=== PATIENT | female | born 1985 | race Caucasian/White ===

== ENCOUNTER → 2018-01-07 08:32 | Outpatient (CLI) | payer MEDICAID | END | disposition home or self-care (01) | LOC: D.NM 12-24 10:15 | DX: G90.512 Complex regional pain syndrome I of left upper limb (principal) ==

== ENCOUNTER 2019-02-13 17:06 | Emergency (ER) | payer MEDICAID ==
[~2019-02-13] VITALS: Ht 167.6 cm; Wt 76.4 kg
[2019-02-13 17:09] VITALS: Ht 167.6 cm; Wt 76.4 kg
[2019-02-13] MEDS ORDERED: LATUDA80 MG PO (17:10)
[2019-02-13] MEDS ORDERED: HYDROCODON-ACE1 EA10 PO (17:11)
[2019-02-13] MEDS ORDERED: KLONOPIN1 MG PO (17:11)
[2019-02-13] MEDS ORDERED: [UNRECOGNIZED DRUG - OTHER] (17:12)
[2019-02-13] MEDS ORDERED: CHRONULAC30 ML PO (17:12)
[2019-02-13] MEDS ORDERED: ZOVIRAX200 MG PO (17:13)
[2019-02-13] MEDS ORDERED: ZANAFLEX4 MG PO (17:13)
[2019-02-13] MEDS ORDERED: NEURONTIN600 MG PO (17:13)
[2019-02-13 17:31] LABS: BASOPHILS 0.3 % (0-2); EOSINOPHILS 3.2 % (0-7); HEMATOCRIT 38.9 % (36.0-48.0); HEMOGLOBIN 13.6 g/dL (12-16); IMMATURE GRANULOCYTES 0.3 % (0-5); LYMPHOCYTES 20.5 % (15-50); MCH 32.3 pg (26.0-34.0); MCV 92.4 fL (80.0-100.0); MEAN PLATELET VOLUME 10.1 fL (7.4-10.4); MONOCYTES 10.4 % (2-11); NEUTROPHILS 65.3 % (40-80); PLATELET COUNT 273 10x3/uL (130-400); RBC 4.21 10x6/uL (4.00-5.40); RDW 12.9 % (11.5-14.5); WBC 10.3 10x3/uL (4.8-10.8)
[2019-02-13 17:47] LABS: ALBUMIN 3.7 g/dL (3.4-5.0); ALKALINE PHOSPHATASE 58 U/L (46-116); ALT (SGPT) 19 U/L (10-68); BILIRUBIN - TOTAL 0.45 mg/dL (0.2-1.3); CALC OSMOLALITY 278 mosm/kg (275-300); CALCIUM 8.9 mg/dL (8.5-10.1); CARBON DIOXIDE 23.3 mmol/L (21.0-32.0); CHLORIDE - SERUM 105 mmol/L (98-107); CREATININE - SERUM 0.8 mg/dL (0.6-1.3); GLUCOSE 106 mg/dL (74-106); POTASSIUM - SERUM 4.1 mmol/L (3.5-5.1); PROTEIN - SERUM 7.5 g/dL (6.4-8.2); SODIUM 139 mmol/L (136-145); UREA NITROGEN 14 mg/dL (7-18); eGFR NON AFRICAN AMERICAN 87 mL/min (90-120)
[2019-02-13] MEDS ORDERED: ALBUTEROL SULF8.5 GM INH (19:35)
[2019-02-13 19:57] VITALS: BP 128/75
== END 2019-02-13 19:57 | disposition home or self-care (01) ==
LOC: D.ER 17:06
PROVIDERS: Family Medicine
DX: J45.901 Unspecified asthma with (acute) exacerbation (principal)

== ENCOUNTER 2019-05-17 21:01 | Emergency (ER) | payer OTHER ==
[2019-02-13 17:09] VITALS: BMI 27.1
[~2019-05-17 21:01] MED LIST: ALBUTEROL SULF8.5 GM INH; CHRONULAC30 ML PO; HYDROCODON-ACE1 EA10 PO; KLONOPIN1 MG PO; LATUDA80 MG PO; NEURONTIN600 MG PO; ZANAFLEX4 MG PO; ZOVIRAX200 MG PO; [UNRECOGNIZED DRUG - OTHER]
== END 2019-05-17 21:37 | disposition left against medical advice (07) ==
LOC: D.ER 21:01
DX: R10.9 Unspecified abdominal pain (principal)

== ENCOUNTER 2019-07-08 15:02 | Emergency (ER) | payer OTHER ==
[~2019-07-08] VITALS: Ht 167.6 cm; Wt 75.0 kg
[2019-07-08 15:15] VITALS: BP 142/78; Ht 167.6 cm; Wt 75.0 kg
[2019-07-08 15:35] LABS: BASOPHILS 0.3 % (0-2); EOSINOPHILS 2.8 % (0-7); HEMATOCRIT 46.8 % (36.0-48.0); HEMOGLOBIN 15.8 g/dL (12-16); IMMATURE GRANULOCYTES 0.1 % (0-5); LYMPHOCYTES 21.6 % (15-50); MCH 32.6 pg (26.0-34.0); MCHC 33.8 g/dL (31.0-37.0); MCV 96.7 fL (80.0-100.0); MEAN PLATELET VOLUME 10.4 fL (7.4-10.4); MONOCYTES 8.8 % (2-11); NEUTROPHILS 66.4 % (40-80); PLATELET COUNT 297 10x3/uL (130-400); RBC 4.84 10x6/uL (4.00-5.40); RDW 12.6 % (11.5-14.5); WBC 8.7 10x3/uL (4.8-10.8)
[2019-07-08 15:49] LABS: APPEARANCE CLEAR (CLEAR); BILIRUBIN NEGATIVE (NEGATIVE); COLOR YELLOW (YELLOW); GLUCOSE NEGATIVE (NEGATIVE); HCG URINE NEGATIVE (NEGATIVE); KETONE NEGATIVE (NEGATIVE); NITRITE NEGATIVE (NEGATIVE); PROTEIN NEGATIVE (NEGATIVE); UROBILINOGEN NORMAL (NORMAL)
[2019-07-08 15:50] LABS: UDS - AMPHET NEGATIVE QUAL (NEGATIVE); UDS - BARB NEGATIVE QUAL (NEGATIVE); UDS - BENZO NEGATIVE QUAL (NEGATIVE); UDS - COCAINE NEGATIVE QUAL (NEGATIVE); UDS - OPIATE NEGATIVE QUAL (NEGATIVE); UDS - PCP NEGATIVE QUAL (NEGATIVE); UDS - THC NEGATIVE QUAL (NEGATIVE)
[2019-07-08 16:05] LABS: ALBUMIN 3.9 g/dL (3.4-5.0); ALKALINE PHOSPHATASE 52 U/L (46-116); ALT (SGPT) 27 U/L (10-68); CALC OSMOLALITY 286 mosm/kg (275-300); CALCIUM 9.1 mg/dL (8.5-10.1); CARBON DIOXIDE 33.2 mmol/L (21.0-32.0); CHLORIDE - SERUM 105 mmol/L (98-107); CREATININE - SERUM 0.9 mg/dL (0.6-1.3); GLUCOSE 108 mg/dL (74-106); MAGNESIUM - SERUM 1.8 mg/dL (1.8-2.4); PROTEIN - SERUM 7.8 g/dL (6.4-8.2); SODIUM 143 mmol/L (136-145); UREA NITROGEN 15 mg/dL (7-18); eGFR NON AFRICAN AMERICAN 75 mL/min (90-120)
--- NOTE | 2019-07-08 16:28 | NUR ---
DR. MALAGON NOTIFIED AND SITTER ORDERED. SITTER AT BEDSIDE. NOTIFIED CHARGE NURSE AND ATTENDING IN REGARDS TO ASSESSMENT FINDINGS. RESOURCES GIVEN TO PT AND SAFETY PLAN INITIATED.
== END 2019-07-08 18:48 ==
LOC: D.ER 15:02
PROVIDERS: Family Medicine
DX: R45.851 Suicidal ideations (principal); F15.10 Other stimulant abuse, uncomplicated; F31.9 Bipolar disorder, unspecified

== ENCOUNTER 2020-03-30 18:05 | Emergency (ER) | payer OTHER ==
[~2020-03-30] VITALS: Ht 167.6 cm; Wt 84.1 kg
[2020-03-30 18:42] VITALS: Ht 167.6 cm; Wt 84.1 kg
[2020-03-30] MEDS ORDERED: FLORANEX / LACT1 TAB (18:50)
[2020-03-30] MEDS ORDERED: DEPAKOTE ER500 MG PO (18:50)
[2020-03-30 20:06] LABS: ANION GAP 11.7 mmol/L (8-16); CALCIUM 8.5 mg/dL (8.5-10.1); CARBON DIOXIDE 26.1 mmol/L (21.0-32.0); POTASSIUM - SERUM 3.8 mmol/L (3.5-5.1)
[2020-03-30 20:11] LABS: UDS - AMPHET POSITIVE QUAL (NEGATIVE); UDS - BARB NEGATIVE QUAL (NEGATIVE); UDS - BENZO NEGATIVE QUAL (NEGATIVE); UDS - COCAINE NEGATIVE QUAL (NEGATIVE); UDS - OPIATE NEGATIVE QUAL (NEGATIVE); UDS - PCP NEGATIVE QUAL (NEGATIVE); UDS - THC POSITIVE QUAL (NEGATIVE)
[2020-03-30 20:13] LABS: ALBUMIN 3.8 g/dL (3.4-5.0); BILIRUBIN - TOTAL 0.98 mg/dL (0.2-1.3); MAGNESIUM - SERUM 2.2 mg/dL (1.8-2.4); PROTEIN - SERUM 7.2 g/dL (6.4-8.2)
[2020-03-30 20:27] LABS: SPECIFIC GRAVITY 1.025 (1.005-1.020)
[2020-03-30 20:29] LABS: BILIRUBIN NEGATIVE (NEGATIVE); GLUCOSE NEGATIVE (NEGATIVE); HCG URINE NEGATIVE (NEGATIVE); KETONE NEGATIVE (NEGATIVE); NITRITE NEGATIVE (NEGATIVE); UROBILINOGEN NORMAL (NORMAL)
[2020-03-30 20:30] LABS: BASOPHILS 0.4 % (0-2); EOSINOPHILS 3.7 % (0-7); HEMATOCRIT 40.3 % (36.0-48.0); HEMOGLOBIN 13.9 g/dL (12-16); IMMATURE GRANULOCYTES 0.2 % (0-5); LYMPHOCYTES 21.2 % (15-50); MCH 32.4 pg (26.0-34.0); MCHC 34.5 g/dL (31.0-37.0); MCV 93.9 fL (80.0-100.0); MEAN PLATELET VOLUME 10.3 fL (7.4-10.4); MONOCYTES 8.4 % (2-11); NEUTROPHILS 66.1 % (40-80); PLATELET COUNT 301 10x3/uL (130-400); RBC 4.29 10x6/uL (4.00-5.40); RDW 12.7 % (11.5-14.5); WBC 11.9 10x3/uL (4.8-10.8)
--- NOTE | 2020-03-30 20:46 | NUR ---
DR MALAGON NOTIFIED AND REVIEWED PT BEHAVIOR AND ASSESSMENT. PT IS A LOW RISK PER DR MALAGON. DR MALAGON STATED TO GIVE RESOURCES TO PT AT TIME OF DISCHARGE. NO FURTHER ORDERS AT THIS TIME. RESOURCES REVIEWED WITH PT AND SHE VERBALIZED UNDERSTANDING.
[2020-03-30 21:20] VITALS: BP 130/76
== END 2020-03-30 21:20 | disposition home or self-care (01) ==
LOC: D.ER 18:05
PROVIDERS: Family Medicine
DX: R10.9 Unspecified abdominal pain (principal); F19.10 Other psychoactive substance abuse, uncomplicated; J45.909 Unspecified asthma, uncomplicated; Z72.0 Tobacco use